=== PATIENT | female | born 1975 | race Two or more races ===

== ENCOUNTER 2020-08-30 15:00 | Inpatient (IN) | payer BC ==
[~2020-08-30] VITALS: Ht 160 cm; Wt 82.9 kg
[~2020-08-30 15:00] MED LIST: ATOR20TA37 PO; HYDR12.517 PO; LISI40TA PO
[2020-09-06] MEDS ORDERED: MIDAZOLAM 1 MG/ML, 2ML ONE (06:44)
[2020-09-06] MEDS ORDERED: FENTANYL PF 250 MCG/5ML ONE (06:44)
[2020-09-06] MEDS ORDERED: PROPOFOL 10 MG/ML, 20ML ONE (06:44)
[2020-09-06] MEDS ORDERED: ROCURONIUM 10MG/ML,5ML ONE (06:45)
[2020-09-06] MEDS ORDERED: DEXAMETHASONE 4 MG/ML, 1ML ONE ×2 (06:46)
[2020-09-06 06:54] LABS: HCG UR SG 1.028 (1.003-1.030)
[2020-09-06] MEDS ORDERED: LIDOCAINE-MPF 1%, 2ML INFIL ONE (07:00)
[2020-09-06] MEDS ORDERED: LACTATED RINGERS 1,000 ML IV SCH (07:00)
[2020-09-06] MEDS ORDERED: CHLORHEXIDINE 15 ML UDC MM ONE (07:00)
[2020-09-06] MEDS ORDERED: BUPIVACAINE/PF 0.5% ONE (07:04)
[2020-09-06] MEDS ORDERED: EPINEPHRINE TOPICAL SOLN 1 MG/ML, 30ML ONE (07:04)
[2020-09-06] MEDS ORDERED: BACITRACIN OINT 500U/GM, 15 GM ONE (07:04)
[2020-09-06] MEDS ORDERED: EPINEPHRINE 1 MG/ML, 1ML ONE (07:05)
[2020-09-06] MEDS ORDERED: LIDOCAINE/PF 1%, 30ML ONE (07:05)
[2020-09-06] MEDS ORDERED: FLUORESCEIN SODIUM 500 MG/5 ML ONE (07:05)
[2020-09-06] MEDS ORDERED: BACITRACIN 50,000 UNIT ONE (07:05)
[2020-09-06] MEDS ORDERED: DIPHENHYDRAMINE 50 MG/ML, 1ML ONE (08:13)
[2020-09-06] MEDS ORDERED: CEFTRIAXONE 1,000 MG ONE (08:21)
[2020-09-06] MEDS ORDERED: EPHEDRINE 50 MG/ML, 1ML ONE (08:43)
[2020-09-06] MEDS ORDERED: LABETALOL 5MG/ML, 20ML IV PRN (09:00)
[2020-09-06] MEDS ORDERED: ONDANSETRON 2MG/ML, 2ML IVPush PRN ×2 (09:00→13:00)
[2020-09-06] MEDS ORDERED: PROMETHAZINE 25 MG/ML, 1ML IVPush PRN (09:00)
[2020-09-06] MEDS ORDERED: ACETAMINOPHEN 325 MG TABLET PO PRN (09:00)
[2020-09-06] MEDS ORDERED: OXYcodone 5 MG/5 ML ORAL.SOL UDC PO PRN (09:00)
[2020-09-06] MEDS ORDERED: HYDROmorphone 1 MG/ML, 1ML INJ IVPush PRN (09:00)
[2020-09-06] MEDS ORDERED: hydrALAzine 20 MG/ML, 1ML IV PRN (09:00)
[2020-09-06] MEDS ORDERED: MEPERIDINE/PF 25MG/0.5ML IVPush PRN (09:00)
[2020-09-06] MEDS ORDERED: ONDANSETRON 2MG/ML, 2ML ONE (10:06)
[2020-09-06] MEDS ORDERED: FENTANYL PF 100 MCG/2ML ONE (11:25)
[2020-09-06] MEDS: FENTANYL PF 100 MCG/2ML IV PRN ×2 (11:28→11:46)
[2020-09-06] MEDS: morphine SULFATE 10 MG/ML, 1ML IVPush PRN ×2 (13:13→13:42)
[2020-09-06] MEDS: LACTATED RINGERS 1,000 ML IV SCH ×2 (13:13→22:38)
[2020-09-06] MEDS: CEFTRIAXONE PMX 2GM/50ML 50 ML IVPB SCH (13:44)
[2020-09-06] MEDS ORDERED: ACETAMINOPHEN 325 MG TABLET ONE (14:29)
[2020-09-06] MEDS: ACETAMINOPHEN 325 MG TABLET PO PRN ×3 (14:35→23:57)
[2020-09-06] MEDS ORDERED: morphine SULFATE 10 MG/ML, 1ML IVPush PRN (16:30)
[2020-09-06] MEDS: ATORVASTATIN 20 MG TABLET PO SCH (19:25)
[2020-09-07] MEDS: HYDROcodone/APAP 5/325 TABLET PO PRN ×4 (01:21→10:00)
[2020-09-07] MEDS: LACTATED RINGERS 1,000 ML IV SCH (09:00)
[2020-09-07] MEDS: LISINOPRIL 20 MG TABLET PO SCH (09:07)
[2020-09-07] MEDS: HYDROCHLOROTHIAZIDE 12.5 MG CAPSULE PO SCH (09:07)
[2020-09-07] MEDS: CEFTRIAXONE PMX 2GM/50ML 50 ML IVPB SCH (13:56)
[2020-09-07] MEDS ORDERED: SIMETHICONE 125 MG CHEW TAB PO PRN (14:00)
[2020-09-07] MEDS ORDERED: CALCIUM CARBONATE 500 MG TAB.CHEW PO PRN (14:00)
[2020-09-07] MEDS: ACETAMINOPHEN 325 MG TABLET PO PRN ×2 (14:37→18:28)
[2020-09-07 19:48] VITALS: BP 114/77
[2020-09-07] MEDS: ATORVASTATIN 20 MG TABLET PO SCH (21:24)
[2020-09-07] MEDS: DOCUSATE 100 MG CAPSULE PO SCH (21:24)
[2020-09-07] MEDS: OXYcodone IR 5MG TABLET PO PRN (21:25)
[2020-09-08 01:22] VITALS: BP 106/69
[2020-09-08 06:49] VITALS: BP 112/74
[2020-09-08] MEDS: HYDROCHLOROTHIAZIDE 12.5 MG CAPSULE PO SCH (08:01)
[2020-09-08] MEDS: DOCUSATE 100 MG CAPSULE PO SCH (08:01)
[2020-09-08] MEDS: LISINOPRIL 20 MG TABLET PO SCH (08:01)
[2020-09-08] MEDS: OXYcodone IR 5MG TABLET PO PRN ×2 (10:18→14:50)
[2020-09-08] MEDS: ACETAMINOPHEN 325 MG TABLET PO PRN ×2 (10:18→14:50)
[2020-09-08 12:42] VITALS: BP 106/71
[2020-09-08] MEDS: CEFTRIAXONE PMX 2GM/50ML 50 ML IVPB SCH (13:48)
[2020-09-08] MEDS ORDERED: OXYC5CAP2 PO (14:24)
[2020-09-08] MEDS ORDERED: AMOX1TAB64 PO (14:25)
[2020-09-08] MEDS ORDERED: ONDA4TAB7 PO (14:26)
== END 2020-09-08 16:45 | disposition home or self-care (01) | DRG 27 ==
LOC: ORIP 09-06 06:00 → CCU 09-06 12:15 → MERGE 09-06 13:00 → 4NW 09-07 16:26 → DCLOUNGE 09-08 16:41
PROVIDERS: ADMIT Otolaryngology; ATTEND Internal Medicine
PROC: 099R3ZZ Drainage of Left Maxillary Sinus, Percutaneous Approach (ICD-10-PCS; 2020-09-06)
PROC: 3E0R3HZ Introduction of Radioactive Substance into Spinal Canal, Percutaneous Approach (ICD-10-PCS; 2020-09-06)
PROC: 009U30Z Drainage of Spinal Canal with Drainage Device, Percutaneous Approach (ICD-10-PCS; 2020-09-06)
PROC: 0NU Head and Facial Bones, Supplement (ICD-10-PCS; principal; 2020-09-06 07:30)
PROC: 09TV0ZZ Resection of Left Ethmoid Sinus, Open Approach (ICD-10-PCS; 2020-09-06 07:30)
DX: Q01.8 Encephalocele of other sites (principal); Z86.61 Personal history of infections of the central nervous system; Z87.728 Personal history of other specified (corrected) congenital malformations of nervous system and sense organs; Z88.0 Allergy status to penicillin
CPT/HCPCS: 36415; J3490; S0020; 70450; 81025; 86850; 86900; 87081; G0378; J0171; J0696; J1100; J2250; J2405; J2704; J3010; C1762; J1200; J2270; J7120

== ENCOUNTER → 2020-08-31 | Outpatient (CLI) | payer BC | END | disposition home or self-care (01) | LOC: STAR 15:57 | PROVIDERS: ATTEND Neurological Surgery | DX: Z20.828 Contact with and (suspected) exposure to other viral communicable diseases (principal) | CPT/HCPCS: 87635 ==